=== PATIENT | male | born 1960 | race Caucasian/White ===

== ENCOUNTER 2018-10-21 23:23 | Emergency (ER) | payer OTHER ==
[~2018-10-21] VITALS: Ht 185.4 cm; Wt 108.9 kg
[2018-10-21] MEDS ORDERED: ZPAK PO (23:37)
[2018-10-21] MEDS ORDERED: ALERTNESS AID200 MG PO (23:38)
[2018-10-21] MEDS ORDERED: BUSPIRONE HCL10 MG PO (23:38)
[2018-10-21] MEDS ORDERED: ABILIFY30 MG PO (23:39)
[2018-10-21] MEDS ORDERED: BUPROPION HCL200 M1 PO (23:39)
[2018-10-21] MEDS ORDERED: AMPHETAMINE SAL30 MG PO (23:40)
[2018-10-21] MEDS ORDERED: FLAX OIL1000 MG PO (23:40)
[2018-10-21] MEDS ORDERED: ASPIR 8181 MG PO (23:41)
[2018-10-21] MEDS ORDERED: COQ-10100 MG PO (23:41)
[2018-10-21] MEDS ORDERED: PROTONIX40 M1 PO (23:41)
[2018-10-21] MEDS ORDERED: COZAAR 25 MG TA25 M1 PO (23:42)
[2018-10-21] MEDS ORDERED: FLOMAX0.4 MG PO (23:42)
[2018-10-21] MEDS ORDERED: METFORMIN HCL500 MG PO (23:42)
[2018-10-21] MEDS ORDERED: CHONDROITIN SU500 G1 PO (23:43)
[2018-10-21] MEDS ORDERED: GLUCOSAMINE HC500 MG PO (23:43)
[2018-10-21] MEDS ORDERED: MSM500 MG PO (23:44)
[2018-10-21] MEDS ORDERED: ALIVE VITAMINS PO (23:44)
[2018-10-22] MEDS ORDERED: GUAIFEN-CODEINE10 ML PO (00:50)
[2018-10-22] MEDS ORDERED: VENTOLIN HFA 1818 GM INH (00:55)
[2018-10-22 01:04] VITALS: BP 131/85
== END 2018-10-22 01:11 | disposition home or self-care (01) ==
LOC: ER 23:23
DX: J06.9 Acute upper respiratory infection, unspecified (principal)

== ENCOUNTER 2021-09-15 12:30 | Emergency (ER) | payer OTHER ==
[~2021-09-15] VITALS: Ht 185.4 cm; Wt 108.9 kg
[~2021-09-15 12:30] MED LIST: ABILIFY30 MG PO; ALERTNESS AID200 MG PO; ALIVE VITAMINS PO; AMPHETAMINE SAL30 MG PO; ASPIR 8181 MG PO; BUPROPION HCL200 M1 PO; BUSPIRONE HCL10 MG PO; CHONDROITIN SU500 G1 PO; COQ-10100 MG PO; COZAAR 25 MG TA25 M1 PO; FLAX OIL1000 MG PO; FLOMAX0.4 MG PO; GLUCOSAMINE HC500 MG PO; GUAIFEN-CODEINE10 ML PO; METFORMIN HCL500 MG PO; MSM500 MG PO; PROTONIX40 M1 PO; VENTOLIN HFA 1818 GM INH; ZPAK PO
[2021-09-15 12:57] LABS: ABSOLUTE NEUTROPHILS 4.5 thou/uL (1.4-8.2); BASOPHILS 1.3 % (0.0-2.0); EOSINOPHILS 5.2 % (0.0-3.0); HEMATOCRIT 49.2 % (42.0-52.0); HEMOGLOBIN 16.4 gm/dL (14.0-18.0); LYMPHOCYTES 35.7 % (24.0-44.0); MCH 29.1 pg (26.0-34.0); MCHC 33.3 g/dL (28.0-37.0); MCV 87.6 fL (80.0-100.0); MONOCYTES 10.2 % (1.0-8.0); PLATELET COUNT 220 thou/uL (150-400); POLYS 47.6 % (36.0-66.0); RBC 5.61 mil/uL (4.50-6.00); RDW 13.9 % (10.5-14.5); WBC 9.4 thou/uL (4.0-11.0)
[2021-09-15 13:12] LABS: ANION GAP 10 mmol/L (7-16); BUN 18 mg/dL (7-18); CALCIUM 9.1 mg/dL (8.5-10.1); CHLORIDE 103 mmol/L (98-107); CO2 24 mmol/L (21-32); CREATININE 1.2 mg/dL (0.7-1.3); GLUCOSE 124 mg/dL (74-106); POTASSIUM 4.6 mmol/L (3.5-5.1); SODIUM 137 mmol/L (136-145)
[2021-09-15 13:22] LABS: ALBUMIN 3.6 g/dL (3.4-5.0); DIRECT BILIRUBIN < 0.1 mg/dL (<0.1-0.2); LIPASE 127 U/L (73-393); SGOT 47 U/L (15-37); SGPT 70 U/L (30-65); TOTAL BILIRUBIN 0.4 mg/dL (0.2-1.0)
[2021-09-15 13:29] VITALS: BP 138/87
--- NOTE | 2021-09-15 17:15 | EKG ---
[address] [place] [address] ELECTROCARDIOGRAM REPORT Name: NOLAN DEAN Room #: [facility] Joyce#: [id number] Admission: 09/15/21 Attend Phys: Discharge: 09/15/21 Date of : 64 Report #: [id number] 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
--- NOTE | 2021-09-15 17:16 | EKG ---
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: AKANKSHA : 1960 Requested By: Can [place] Order Number: [id number] MD: Garrison Smith Measurements Intervals [place] Rate: 78 P: 7 NC: 173 QRS: 1 QRSD: 90 T: 34 QT: 354 QTc: 404 Interpretive Statements Sinus rhythm Compared to ECG 09/15/2021 12:32:18 No significant changes Electronically Signed On 09-15-2021 17:16:14 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
== END 2021-09-15 15:05 | disposition home or self-care (01) ==
LOC: ER 12:30
PROVIDERS: Student in an Organized Health Care Education/Training Program
DX: F41.9 Anxiety disorder, unspecified (principal); R42 Dizziness and giddiness; R07.89 Other chest pain; I10 Essential (primary) hypertension; Z90.49 Acquired absence of other specified parts of digestive tract; Z79.51 Long term (current) use of inhaled steroids; Z79.891 Long term (current) use of opiate analgesic; Z79.82 Long term (current) use of aspirin; Z79.84 Long term (current) use of oral hypoglycemic drugs; Z79.899 Other long term (current) drug therapy; Z79.1 Long term (current) use of non-steroidal anti-inflammatories (NSAID)